=== PATIENT | female | born 1975 | race Hispanic/Latino ===

== ENCOUNTER → 2023-06-25 17:32 | Outpatient (REF) | payer OTHER, SELFPAY | LOC: WDC 17:32 | PROVIDERS: ATTENDING PHYSICIAN Nurse Practitioner Adult Health | DX: Z12.31 Encounter for screening mammogram for malignant neoplasm of breast (principal) | CPT/HCPCS: 77063; 77067 ==

== ENCOUNTER → 2023-09-27 07:50 | Outpatient (REF) | payer OTHER, SELFPAY ==
[2023-09-27 08:38] LABS: Hematocrit 38.7 % (37.0-47.0); Hemoglobin 13.6 g/dL (12.0-16.0); Mean Corp Hgb Conc. 35.1 g/dL (33.0-37.0); Mean Corpuscular Hgb 31.9 pg (27.0-31.0); Mean Corpuscular Volume 90.8 fL (81.0-99.0); Mean Platelet Volume 11.3 fL (7.4-10.4); Platelet Count 174 10^3/uL (130-400); Red Blood Cell Count 4.26 10^6/uL (4.20-5.40); Red Cell Dist. Width 12.8 % (11.5-14.5); White Blood Cell Count 4.4 10^3/uL (4.8-10.8)
[2023-09-27 08:50] LABS: ALT (SGPT) 26 U/L (0-35); AST (SGOT) 27 U/L (14-36); Albumin 4.2 g/dl (3.5-5.0); Alkaline Phosphatase 64 U/L (38-126); Blood Urea Nitrogen 18 mg/dl (7-17); Calcium 9.4 mg/dl (8.4-10.2); Carbon Dioxide 25 mmol/L (22-30); Chloride 105 mmol/L (98-107); Glucose 93 mg/dl (70-99); HDL Cholesterol 56 mg/dl; LDL Cholesterol, Calculated 81 mg/dl; Potassium 4.2 mmol/L (3.5-5.1); Sodium 141 mmol/L (135-145); Total Bilirubin 0.6 mg/dl (0.2-1.3); Total Cholesterol 163 mg/dl (50-199); Triglyceride 132 mg/dl (10-149); Very Low Density Lipoprotein 26 mg/dl (0-30); eGFR > 60.00
[2023-09-27 09:08] LABS: Vitamin D, 25-OH*** 28.4 ng/mL (30-80)
== END ==
LOC: CLINIC 07:50
PROVIDERS: ATTENDING PHYSICIAN Nurse Practitioner Adult Health
DX: D50.9 Iron deficiency anemia, unspecified (principal); E55.9 Vitamin D deficiency, unspecified; Z13.220 Encounter for screening for lipoid disorders
CPT/HCPCS: 36415; 80053; 80061; 82306; 85027

== ENCOUNTER → 2023-12-26 08:26 | Outpatient (REF) | payer OTHER, SELFPAY ==
[2023-12-26 10:24] LABS: Hemoglobin 13.7 g/dL (12.0-16.0); Mean Corp Hgb Conc. 35.1 g/dL (33.0-37.0); Mean Corpuscular Hgb 31.6 pg (27.0-31.0); Mean Corpuscular Volume 90.1 fL (81.0-99.0); Mean Platelet Volume 11.1 fL (7.4-10.4); Platelet Count 180 10^3/uL (130-400); Red Blood Cell Count 4.33 10^6/uL (4.20-5.40); Red Cell Dist. Width 12.7 % (11.5-14.5); White Blood Cell Count 4.2 10^3/uL (4.8-10.8)
[2023-12-26 11:08] LABS: Vitamin D, 25-OH*** 35.5 ng/mL (30-80)
[2023-12-26 11:22] LABS: TSH Reflex To Free T4 2.38 uIU/ml (0.47-4.68)
== END ==
LOC: CLINIC 08:26
PROVIDERS: ATTENDING PHYSICIAN Nurse Practitioner Adult Health
DX: D50.9 Iron deficiency anemia, unspecified (principal); E55.9 Vitamin D deficiency, unspecified; Z13.29 Encounter for screening for other suspected endocrine disorder
CPT/HCPCS: 36415; 82306; 84443; 85027

== ENCOUNTER → 2023-12-29 18:57 | Outpatient (REF) | payer OTHER, SELFPAY ==
[2024-01-02 04:53] LABS: HPV, High Risk Not Detected; HPV, High Risk Source Cervix
== END ==
LOC: CLAB 18:57
PROVIDERS: ATTENDING PHYSICIAN Nurse Practitioner Adult Health
DX: Z12.4 Encounter for screening for malignant neoplasm of cervix (principal)
CPT/HCPCS: 87624

== ENCOUNTER → 2024-09-27 09:07 | Outpatient (REF) | payer OTHER, SELFPAY ==
[2024-09-27 10:35] LABS: Hematocrit 40.8 % (37.0-47.0); Hemoglobin 14.4 g/dL (12.0-16.0); Mean Corp Hgb Conc. 35.3 g/dL (33.0-37.0); Mean Corpuscular Hgb 31.9 pg (27.0-31.0); Mean Corpuscular Volume 90.5 fL (81.0-99.0); Mean Platelet Volume 11.2 fL (7.4-10.4); Platelet Count 172 10^3/uL (130-400); Red Blood Cell Count 4.51 10^6/uL (4.20-5.40); Red Cell Dist. Width 12.2 % (11.5-14.5); White Blood Cell Count 3.8 10^3/uL (4.8-10.8)
[2024-09-27 11:14] LABS: Vitamin D, 25-OH*** 47.3 ng/mL (30-80)
[2024-09-27 11:20] LABS: ALT (SGPT) 27 U/L (0-35); AST (SGOT) 25 U/L (14-36); Albumin 4.7 g/dl (3.5-5.0); Alkaline Phosphatase 48 U/L (38-126); Blood Urea Nitrogen 16 mg/dl (7-17); Calcium 10.1 mg/dl (8.4-10.2); Carbon Dioxide 28 mmol/L (22-30); Chloride 106 mmol/L (98-107); Glucose 93 mg/dl (70-99); HDL Cholesterol 59 mg/dl; LDL Cholesterol, Calculated 101 mg/dl; Potassium 4.3 mmol/L (3.5-5.1); Sodium 142 mmol/L (135-145); Total Bilirubin 0.6 mg/dl (0.2-1.3); Total Cholesterol 185 mg/dl (50-199); Total Protein 7.8 g/dl (6.3-8.2); Triglyceride 126 mg/dl (10-149); Very Low Density Lipoprotein 25 mg/dl (0-30); eGFR > 60.00
[2024-09-27 11:48] LABS: Vitamin B12 980 pg/ml (239-931)
== END ==
LOC: CLINIC 09:07
PROVIDERS: ATTENDING PHYSICIAN Nurse Practitioner Adult Health
DX: Z00.00 Encounter for general adult medical examination without abnormal findings (principal); D50.9 Iron deficiency anemia, unspecified; E55.9 Vitamin D deficiency, unspecified
CPT/HCPCS: 36415; 80053; 80061; 82306; 82607; 85027

== ENCOUNTER → 2025-01-26 18:14 | Outpatient (REF) | payer OTHER, SELFPAY | LOC: WDC 18:14 | PROVIDERS: ATTENDING PHYSICIAN Nurse Practitioner Adult Health | DX: Z12.31 Encounter for screening mammogram for malignant neoplasm of breast (principal) | CPT/HCPCS: 77063; 77067 ==